=== PATIENT | male | born 1980 | race African-American/Black ===

== ENCOUNTER 2019-01-16 10:33 | Inpatient (IN) | payer OTHER ==
[~2019-01-16] VITALS: Ht 177.8 cm; Wt 77.1 kg
[~2019-01-16 10:33] MED LIST: BUTA1CAP29 PO
--- NOTE | 2019-01-16 11:11 | PHYS DOC ---
Past Medical History Past Medical History: No Pertinent History Past Surgical History: No Surgical History Alcohol Use: Occasionally Drug Use: Marijuana Adult General Chief Complaint Chief Complaint: BACK PAIN - NO INJURY HPI HPI Patient is a 38-year-old -[place] male who presents to the emergency department for evaluation. He states that he bent over after placing a carton down on the floor yesterday and had acute pain in his back, radiating down to both legs. He states the pain was so bad he is unable to ambulate. He has not had any incontinence, numbness or focal weakness. He denies any saddle anesthesia, or incontinence, urinary or stool. He has not had any fevers or chills, and denies any direct traumatic injury. Any attempted movement, of his back, trunk, or lower extremities worsens back pain. There are no alleviating factors to his symptoms. Review of Systems Review of Systems Constitutional: Denies fever or chills [] Eyes: Denies change in visual acuity, redness, or eye pain [] HENT: Denies nasal congestion or sore throat [] Respiratory: Denies cough or shortness of breath [] Cardiovascular: The patient denies any shortness of breath, chest pain, palpitations, or orthopnea[] GI: Denies abdominal pain, nausea, vomiting, bloody stools or diarrhea [] : Denies dysuria or hematuria [] Musculoskeletal: Denies nebk pain or joint pain [] Integument: Denies rash or skin lesions [] Neurologic: Denies headache, focal weakness or sensory changes [] Endocrine: Denies polyuria or polydipsia [] All other systems were reviewed and found to be within normal limits, except as documented in this note. Current Medications Current Medications Current Medications Medications (Trade) Dose Ordered Sig/Cherelle Start Time Stop Time Status Last Admin Dose Admin Diazepam (Valium) 5 mg 1X ONCE 01/16/19 11:15 01/16/19 11:16 DC 01/16/19 11:28 5 MG Hydromorphone HCl (Dilaudid) 1 mg 1X ONCE 01/16/19 11:15 01/16/19 11:16 DC Ketorolac Tromethamine (Toradol 30mg Vial) 30 mg 1X ONCE 01/16/19 11:15 01/16/19 11:16 DC 01/16/19 11:28 30 MG Allergies Allergies Allergies Coded Allergies Type Severity Reaction Last Updated Verified No Known Drug Allergies 11/19/16 No Physical Exam Physical Exam PHYSICAL EXAM: CONSTITUTIONAL: Well developed, well nourished HEAD: normocephalic, atraumatic EENT: PERRL, EOMI. Conjunctivae normal color, sclerae non-icteric; moist mucous membranes. NECK: Supple, non-tender; no meningismus. LUNGS: Lungs CTA, breathing even and unlabored. Normal air movement. HEART: Regular rate and rhythm, no murmur CHEST: No deformity; non-tender ABDOMEN: The abdomen is soft, mild diffuse tenderness to palpation of the abdomen which the patient states exacerbates his back pain, normal bowel sounds are present, there is no rebound or guarding, no masses or bruits. EXTREM: Normal ROM; no deformity, no calf tenderness. Normal pulses palpable in all extremities. There is no pedal edema. SKIN: No rash; no diaphoresis NEURO: Alert; normal speech and cognition; CN's grossly intact; strength grossly intact without focal deficit. Telemetry reflexes are intact bilaterally. There is no fracture. There is no distal or perineal anesthesia. There is diffuse tenderness to palpation to the mid to lower lumbar spine, both midline and paraspinal. BACK: No CVA TTP. Current Patient Data Vital Signs Vital Signs Date Time Temp Pulse Resp B/P (MAP) Pulse Ox O2 Delivery O2 Flow Rate FiO2 01/16/19 10:33 97.8 61 18 142/62 (88) 100 Room Air 97.8 Lab Values Laboratory Tests Test 01/16/19 11:32 White Blood Count 4.6 x10^3/uL (4.0-11.0) Red Blood Count 5.20 x10^6/uL (4.30-5.70) Hemoglobin 14.9 g/dL (13.0-17.5) Hematocrit 46.2 % (39.0-53.0) Mean Corpuscular Volume 89 fL (79-100) Mean Corpuscular Hemoglobin 29 pg (25-35) Mean Corpuscular Hemoglobin Concent 32 g/dL (31-37) Red Cell Distribution Width 12.9 % (11.5-14.5) Platelet Count 210 x10^3/uL (140-400) Neutrophils (%) (Auto) 48 % (31-73) Lymphocytes (%) (Auto) 35 % (24-48) Monocytes (%) (Auto) 12 % (0-9) H Eosinophils (%) (Auto) 4 % (0-3) H Basophils (%) (Auto) 1 % (0-3) Neutrophils # (Auto) 2.2 x10^3uL (1.8-7.7) Lymphocytes # (Auto) 1.6 x10^3/uL (1.0-4.8) Monocytes # (Auto) 0.6 x10^3/uL (0.0-1.1) Eosinophils # (Auto) 0.2 x10^3/uL (0.0-0.7) Basophils # (Auto) 0.1 x10^3/uL (0.0-0.2) Sodium Level 144 mmol/L (136-145) Potassium Level 3.7 mmol/L (3.5-5.1) Chloride Level 106 mmol/L (98-107) Carbon Dioxide Level 30 mmol/L (21-32) Anion Gap 8 (6-14) Blood Urea Nitrogen 10 mg/dL (8-26) Creatinine 1.3 mg/dL (0.7-1.3) Estimated GFR (Cockcroft-Gault) 75.6 BUN/Creatinine Ratio 8 (6-20) Glucose Level 96 mg/dL (70-99) Calcium Level 8.9 mg/dL (8.5-10.1) Total Bilirubin 0.3 mg/dL (0.2-1.0) Aspartate Amino Transferase (AST) 20 U/L (15-37) Alanine Aminotransferase (ALT) 14 U/L (16-63) L Alkaline Phosphatase 75 U/L (46-116) C-Reactive Protein, Quantitative < 0.5 mg/L (0-3.3) Total Protein 7.2 g/dL (6.4-8.2) Albumin 3.8 g/dL (3.4-5.0) Albumin/Globulin Ratio 1.1 (1.0-1.7) Laboratory Tests 01/16/19 11:32 Laboratory Tests 01/16/19 11:32 EKG EKG [] Radiology/Procedures Radiology/Procedures [] Course & Med Decision Making Course & Med Decision Making Pertinent Labs and Imaging studies reviewed. (See chart for details) [The patient's condition remains stable. However, he is unable to ambulate at all secondary to the pain. He denied that I wanted. He does not like opiates. I discussed the case with the hospitalist who will will admit the patient for further evaluation and treatment, likely MRI, and possible neurosurgical consult..] Dragon Disclaimer Dragon Disclaimer This electronic medical record was generated, in whole or in part, using a voice recognition dictation system. Departure Departure Impression: Primary Impression: Acute low back pain Disposition: ADMITTED INPATIENT Admitting Physician: Opal Conner Condition: STABLE Referrals: NO PCP (PCP) RAN GONZALES MD Jan 16, 2019 11:11
[2019-01-16] MEDS ORDERED: HYDROmorphone 2 MG/ML VIAL IV ONE (11:15)
[2019-01-16] MEDS ORDERED: KETOROLAC 30 MG/ML VIAL. IV ONE (11:15)
[2019-01-16] MEDS ORDERED: diazePAM 5 MG TABLET PO ONE (11:15)
[2019-01-16 11:59] LABS: BASO # 0.1 x10^3/uL (0.0-0.2); BASO % 1 % (0-3); EOS # 0.2 x10^3/uL (0.0-0.7); EOS % 4 % (0-3); HEMATOCRIT 46.2 % (39.0-53.0); HEMOGLOBIN 14.9 g/dL (13.0-17.5); LYMPH # 1.6 x10^3/uL (1.0-4.8); LYMPH % 35 % (24-48); MEAN CORPUSCULAR HEMOGLOBIN 29 pg (25-35); MEAN CORPUSCULAR HGB CONC 32 g/dL (31-37); MEAN CORPUSCULAR VOLUME 89 fL (79-100); MONO # 0.6 x10^3/uL (0.0-1.1); MONO % 12 % (0-9); NEUT # 2.2 x10^3uL (1.8-7.7); NEUT % 48 % (31-73); PLATELET COUNT 210 x10^3/uL (140-400); RED CELL DISTRIBUTION WIDTH 12.9 % (11.5-14.5); WHITE BLOOD COUNT 4.6 x10^3/uL (4.0-11.0)
[2019-01-16 12:10] LABS: ANION GAP 8 (6-14); BLOOD UREA NITROGEN 10 mg/dL (8-26); BUN/CREATININE RATIO 8 (6-20); CALCIUM 8.9 mg/dL (8.5-10.1); CARBON DIOXIDE 30 mmol/L (21-32); CHLORIDE 106 mmol/L (98-107); CREATININE 1.3 mg/dL (0.7-1.3); GFR 75.6; GLUCOSE 96 mg/dL (70-99); POTASSIUM 3.7 mmol/L (3.5-5.1); SODIUM 144 mmol/L (136-145)
[2019-01-16 12:15] LABS: ALBUMIN 3.8 g/dL (3.4-5.0); ALBUMIN/GLOBULIN RATIO 1.1 (1.0-1.7); ALK PHOS 75 U/L (46-116); ALT (SGPT) 14 U/L (16-63); AST (SGOT) 20 U/L (15-37); C-REACTIVE PROTEIN < 0.5 mg/L (0-3.3); TOTAL BILIRUBIN 0.3 mg/dL (0.2-1.0); TOTAL PROTEIN 7.2 g/dL (6.4-8.2)
--- NOTE | 2019-01-16 12:29 | RAD ---
Examination: LUMBAR SPINE 2-3V History: LBP X1 DAY AFTER LIFTING OBJECT. UNABLE TO BEAR WEIGHT Comparison/Correlation: None Findings: Frontal, lateral, and cone-down L5-S1 lateral views of the lumbar spine were obtained. Alignment is normal. Mild sclerosis of the right sacroiliac joint is questioned. Body heights and disc spaces are adequate. No fracture or bony destruction. Gaseous distention of large and small bowel is present but mild. Impression: No acute bony process. Alignment is normal. No significant degenerative change of the lumbar spine. Electronically signed by: Mitch Landeros MD (01/16/2019 12:26 PM) [facility]
[2019-01-16] MEDS ORDERED: KETOROLAC 30 MG/ML VIAL. IV PRN (12:30)
[2019-01-16] MEDS ORDERED: fentaNYL PF VIAL 100 MCG/2 ML VIAL IV PRN (12:30)
[2019-01-16] MEDS ORDERED: ZOLPIDEM 5 MG TABLET. PO PRN (12:30)
[2019-01-16] MEDS ORDERED: HYDROcodone/APAP 5/325MG 1 TAB TABLET PO PRN (12:30)
[2019-01-16 12:42] LABS: BILIRUBIN,URINE NEGATIVE (NEG); CLARITY,URINE CLEAR; COLOR,URINE YELLOW; NITRITE,URINE NEGATIVE (NEG); PROTEIN,URINE NEGATIVE (NEG-TRACE); UROBILINOGEN,URINE 0.2 mg/dL (0.2 mg/dL)
[2019-01-16] MEDS ORDERED: BUTALB/APAP/CAFEIN 50/325/40MG TABLET. PO PRN (12:45)
[2019-01-16 12:57] LABS: HYALINE CASTS, URINE FEW /HPF; SQUAMOUS EPITHELIAL CELL,UR FEW /LPF
[2019-01-16 12:58] LABS: BACTERIA,URINE 0 /HPF (0-FEW); RBC,URINE 0 /HPF (0-2); WBC,URINE OCC /HPF (0-4)
--- NOTE | 2019-01-16 13:10 | NUR ---
This patient arrived to the unit via gurney, was able to assist to bed with complaints of pain. Pain stated, "I do not want pain medications, unless I have to have them." Education completed on pain medications, including handout in welcome packet. Call light within reach of patient, family at bedside, this nurse will continue to monitor.
[2019-01-16] MEDS: LIDOCAINE (700MG/PATCH) PATCH. TD SCH (14:34)
[2019-01-16 15:39] VITALS: BP 125/71
--- NOTE | 2019-01-16 17:53 | PDOC1 ---
History and Physical Date of Admission Date of Admission DATE: 01/16/19 TIME: 17:48 Identification/Chief Complaint Chief Complaint acute back pain Source Source: Caregiver, Chart review, Patient History of Present Illness History of Present Illness 38 AA male, hx back pain, work related, disc bulge 2002, dx via MRI< Was well since tried to lift an empty egg cart, maybe bent in a wrong fashion, Then sever pain while walking and even at rest, HE describes some shooting pain bilateral hips to mid knees, and numbness, NO loos of bowel/bladder fcn. Still pain despite my IV and PO pain med and lidoderm patch, Xray LS spine UR. Will get physiatry and mRI, check for disc bulge/pathology, MRI likely might be revealing HE has no other signif past medical nor vizcaino she take meds at home Past Medical History Cardiovascular: No pertinent hx Pulmonary: No pertinent hx GI: No pertinent hx Heme/Onc: No pertinent hx Hepatobiliary: No pertinent hx Psych: No pertinent hx Musculoskeletal: low back pain Infectious disease: No pertinent hx ENT: No pertinent hx Renal/: No pertinent hx Endocrine: No pertinent hx Dermatology: No pertinent hx Past Surgical History Past Surgical History: No pertinent history Family History Family History: No Significant Social History Smoke: No ALCOHOL: none Drugs: None Current Problem List Problem List Problems Medical Problems: (1) Acute low back pain Status: Acute Current Medications Current Medications Current Medications Hydromorphone HCl (Dilaudid) 1 mg 1X ONCE IV ; Start 01/16/19 at 11:15; Stop at 11:16; Status DC Diazepam (Valium) 5 mg 1X ONCE PO Last administered on 01/16/19at 11:28; Start 01/16/19 at 11:15; Stop 01/16/19 at 11:16; Status DC Ketorolac Tromethamine (Toradol 30mg Vial) 30 mg 1X ONCE IV Last administered on 01/16/19at 11:28; Start 01/16/19 at 11:15; Stop 01/16/19 at 11:16; Status DC Lidocaine (Lidoderm) 1 patch DAILY TD Last administered on 01/16/19at 14:34; Start 01/16/19 at 12:30 Ketorolac Tromethamine (Toradol 30mg Vial) 15 mg PRN Q6HRS PRN IV PAIN; Start 01/16/19 at 12:30; Stop 01/21/19 at 12:29 Acetaminophen/ Hydrocodone Bitart (Lortab 5/325) 1 tab PRN Q4HRS PRN PO MODERATE PAIN Last administered on 01/16/19at 16:37; Start 01/16/19 at 12:30 Zolpidem Tartrate (Ambien) 5 mg PRN QHS PRN PO INSOMNIA; Start 01/16/19 at 12: 30 Acetaminophen/ Butalbital/ Caffeine (Fioricet) 1 tab PRN Q6HRS PRN PO MIGRAINE HEADACHE; Start 01/16/19 at 12:45 Fentanyl Citrate (Fentanyl 2ml Vial) 50 mcg PRN Q2HR PRN IV SEVERE PAIN; Start 01/16/19 at 12:30 Active Scripts Active Fioricet 50-300-40 Mg Capsule (Butalb/Acetaminophen/Caffeine) 1 Each Capsule 1 Each PO PRN Q4HRS PRN Allergies Allergies: Uncoded Allergies: sea food (Allergy, Severe, Swelling, 01/16/19) ROS Review of System as per HPI,all else is neg Physical Exam General: Alert, Oriented X3, Cooperative, No acute distress HEENT: Atraumatic, PERRLA Lungs: Clear to auscultation, Normal air movement Heart: S1S2, no gallops, no murmurs Cardiovascular: S1, S2 Breasts: Normal, Rt breast nml w/o mass, Lt breast nml w/o mass, Nipples normal Abdomen: Normal bowel sounds, Soft, No tenderness, No hepatosplenomegaly, No masses Male Genitals Exam: normal genitalia, normal prostate PELVIC: Nml ext genitalia Extremities: No clubbing, No cyanosis, No edema, Normal pulses, No tenderness/ swelling Skin: No rashes, No breakdown, No significant lesion Neuro: Normal gait, Normal speech, Strength at 5/5 X4 ext, Normal tone, Sensation intact, Cranial nerves 3-12 NL, Reflexes 2+ Psych/Mental Status: Mental status NL, Mood NL Vitals Vitals Vital Signs Date Time Temp Pulse Resp B/P (MAP) Pulse Ox O2 Delivery O2 Flow Rate FiO2 01/16/19 16:37 100 Room Air 01/16/19 15:39 99.1 54 18 125/71 (89) 99.1 Labs Labs Laboratory Tests Test 01/16/19 11:32 01/16/19 12:30 White Blood Count 4.6 x10^3/uL (4.0-11.0) Red Blood Count 5.20 x10^6/uL (4.30-5.70) Hemoglobin 14.9 g/dL (13.0-17.5) Hematocrit 46.2 % (39.0-53.0) Mean Corpuscular Volume 89 fL (79-100) Mean Corpuscular Hemoglobin 29 pg (25-35) Mean Corpuscular Hemoglobin Concent 32 g/dL (31-37) Red Cell Distribution Width 12.9 % (11.5-14.5) Platelet Count 210 x10^3/uL (140-400) Neutrophils (%) (Auto) 48 % (31-73) Lymphocytes (%) (Auto) 35 % (24-48) Monocytes (%) (Auto) 12 % (0-9) Eosinophils (%) (Auto) 4 % (0-3) Basophils (%) (Auto) 1 % (0-3) Neutrophils # (Auto) 2.2 x10^3uL (1.8-7.7) Lymphocytes # (Auto) 1.6 x10^3/uL (1.0-4.8) Monocytes # (Auto) 0.6 x10^3/uL (0.0-1.1) Eosinophils # (Auto) 0.2 x10^3/uL (0.0-0.7) Basophils # (Auto) 0.1 x10^3/uL (0.0-0.2) Erythrocyte Sedimentation Rate 2 (0-15) Sodium Level 144 mmol/L (136-145) Potassium Level 3.7 mmol/L (3.5-5.1) Chloride Level 106 mmol/L (98-107) Carbon Dioxide Level 30 mmol/L (21-32) Anion Gap 8 (6-14) Blood Urea Nitrogen 10 mg/dL (8-26) Creatinine 1.3 mg/dL (0.7-1.3) Estimated GFR (Cockcroft-Gault) 75.6 BUN/Creatinine Ratio 8 (6-20) Glucose Level 96 mg/dL (70-99) Calcium Level 8.9 mg/dL (8.5-10.1) Total Bilirubin 0.3 mg/dL (0.2-1.0) Aspartate Amino Transf (AST/SGOT) 20 U/L (15-37) Alanine Aminotransferase (ALT/SGPT) 14 U/L (16-63) Alkaline Phosphatase 75 U/L (46-116) C-Reactive Protein, Quantitative < 0.5 mg/L (0-3.3) Total Protein 7.2 g/dL (6.4-8.2) Albumin 3.8 g/dL (3.4-5.0) Albumin/Globulin Ratio 1.1 (1.0-1.7) Urine Collection Type Unknown Urine Color Yellow Urine Clarity Clear Urine pH 6.0 Urine Specific [place] 1.015 Urine Protein Negative mg/dL (NEG-TRACE) Urine Glucose (UA) Negative mg/dL (NEG) Urine Ketones (Stick) Negative mg/dL (NEG) Urine Blood Negative (NEG) Urine Nitrite Negative (NEG) Urine Bilirubin Negative (NEG) Urine Urobilinogen Dipstick 0.2 mg/dL (0.2 mg/dL) Urine Leukocyte Esterase Negative (NEG) Urine RBC 0 /HPF (0-2) Urine WBC Occ /HPF (0-4) Urine Squamous Epithelial Cells Few /LPF Urine Bacteria 0 /HPF (0-FEW) Urine Hyaline Casts Few /HPF Urine Mucus Mod /LPF Laboratory Tests Test 01/16/19 11:32 01/16/19 12:30 White Blood Count 4.6 x10^3/uL (4.0-11.0) Red Blood Count 5.20 x10^6/uL (4.30-5.70) Hemoglobin 14.9 g/dL (13.0-17.5) Hematocrit 46.2 % (39.0-53.0) Mean Corpuscular Volume 89 fL (79-100) Mean Corpuscular Hemoglobin 29 pg (25-35) Mean Corpuscular Hemoglobin Concent 32 g/dL (31-37) Red Cell Distribution Width 12.9 % (11.5-14.5) Platelet Count 210 x10^3/uL (140-400) Neutrophils (%) (Auto) 48 % (31-73) Lymphocytes (%) (Auto) 35 % (24-48) Monocytes (%) (Auto) 12 % (0-9) Eosinophils (%) (Auto) 4 % (0-3) Basophils (%) (Auto) 1 % (0-3) Neutrophils # (Auto) 2.2 x10^3uL (1.8-7.7) Lymphocytes # (Auto) 1.6 x10^3/uL (1.0-4.8) Monocytes # (Auto) 0.6 x10^3/uL (0.0-1.1) Eosinophils # (Auto) 0.2 x10^3/uL (0.0-0.7) Basophils # (Auto) 0.1 x10^3/uL (0.0-0.2) Erythrocyte Sedimentation Rate 2 (0-15) Sodium Level 144 mmol/L (136-145) Potassium Level 3.7 mmol/L (3.5-5.1) Chloride Level 106 mmol/L (98-107) Carbon Dioxide Level 30 mmol/L (21-32) Anion Gap 8 (6-14) Blood Urea Nitrogen 10 mg/dL (8-26) Creatinine 1.3 mg/dL (0.7-1.3) Estimated GFR (Cockcroft-Gault) 75.6 BUN/Creatinine Ratio 8 (6-20) Glucose Level 96 mg/dL (70-99) Calcium Level 8.9 mg/dL (8.5-10.1) Total Bilirubin 0.3 mg/dL (0.2-1.0) Aspartate Amino Transf (AST/SGOT) 20 U/L (15-37) Alanine Aminotransferase (ALT/SGPT) 14 U/L (16-63) Alkaline Phosphatase 75 U/L (46-116) C-Reactive Protein, Quantitative < 0.5 mg/L (0-3.3) Total Protein 7.2 g/dL (6.4-8.2) Albumin 3.8 g/dL (3.4-5.0) Albumin/Globulin Ratio 1.1 (1.0-1.7) Urine Collection Type Unknown Urine Color Yellow Urine Clarity Clear Urine pH 6.0 Urine Specific [place] 1.015 Urine Protein Negative mg/dL (NEG-TRACE) Urine Glucose (UA) Negative mg/dL (NEG) Urine Ketones (Stick) Negative mg/dL (NEG) Urine Blood Negative (NEG) Urine Nitrite Negative (NEG) Urine Bilirubin Negative (NEG) Urine Urobilinogen Dipstick 0.2 mg/dL (0.2 mg/dL) Urine Leukocyte Esterase Negative (NEG) Urine RBC 0 /HPF (0-2) Urine WBC Occ /HPF (0-4) Urine Squamous Epithelial Cells Few /LPF Urine Bacteria 0 /HPF (0-FEW) Urine Hyaline Casts Few /HPF Urine Mucus Mod /LPF VTE Prophylaxis Ordered VTE Prophylaxis Devices: Yes VTE Pharmacological Prophylaxi: Yes Assessment/Plan Assessment/Plan 1. Acute back pain 01/15 after an awkward position bending 2, Hx disc issues/bulge 2002, work related PLAN: MRI tmr Physiatry tmr PAin control Monitor for loss of bowel/blader fcn - so far none NO home meds to reconcile LIZZIE RYAN MD Jan 16, 2019 17:53
[2019-01-16 19:00] VITALS: BP 136/71
[2019-01-16 22:39] VITALS: BP 120/57
[2019-01-17] MEDS ORDERED: ONDANSETRON PF 4 MG/2 ML VIAL. IV PRN
[2019-01-17 03:00] VITALS: BP 111/55
[2019-01-17 07:00] VITALS: BP 110/73
[2019-01-17] MEDS: LIDOCAINE (700MG/PATCH) PATCH. TD SCH (08:38)
--- NOTE | 2019-01-17 08:53 | PDOC ---
PROGRESS NOTES Chief Complaint Chief Complaint 1. Acute back pain 01/15 after an awkward position bending 2, Hx disc issues/bulge 2002, work related History of Present Illness History of Present Illness 38 AA male, hx back pain, work related, disc bulge 2002, dx via MRI at that time. Improved with PT, rehab at that time. Was well since 01/15 tried to lift an empty egg cart, then severe pain while walking and even at rest with associate shooting pain bilateral posterior thighs to mid knees, and numbness with weakness, unable to stand without full assist and has been falling. NoO loos of bowel/bladder function. Still10/10 pain despite IV and PO pain meds, actually vomited with opioids. Lidoderm patch , Xray LS spine UR. Lumbar XR - No acute bony process. Alignment is normal. No significant degenerative change of the lumbar spine. This morning no changes. Does not want opioids for his pain. He has some associated weakness, numbness and nausea. PLAN: MRI Pain control Monitor for loss of bowel/blader fcn - so far none Will get physiatry and mRI, check for disc bulge/pathology, MRI likely might be revealing Vitals Vitals Vital Signs Date Time Temp Pulse Resp B/P (MAP) Pulse Ox O2 Delivery O2 Flow Rate FiO2 01/17/19 07:00 97.8 56 18 110/73 (85) 99 Room Air 97.8 Physical Exam General: Alert, Oriented X3, Cooperative, No acute distress Abdomen: Normal bowel sounds, Soft, No tenderness, No hepatosplenomegaly, No masses Extremities: No clubbing, No cyanosis, No edema, Normal pulses, No tenderness/ swelling Skin: No rashes, No breakdown, No significant lesion Labs LABS Laboratory Tests Test 01/16/19 11:32 01/16/19 12:30 White Blood Count 4.6 x10^3/uL (4.0-11.0) Red Blood Count 5.20 x10^6/uL (4.30-5.70) Hemoglobin 14.9 g/dL (13.0-17.5) Hematocrit 46.2 % (39.0-53.0) Mean Corpuscular Volume 89 fL (79-100) Mean Corpuscular Hemoglobin 29 pg (25-35) Mean Corpuscular Hemoglobin Concent 32 g/dL (31-37) Red Cell Distribution Width 12.9 % (11.5-14.5) Platelet Count 210 x10^3/uL (140-400) Neutrophils (%) (Auto) 48 % (31-73) Lymphocytes (%) (Auto) 35 % (24-48) Monocytes (%) (Auto) 12 % (0-9) Eosinophils (%) (Auto) 4 % (0-3) Basophils (%) (Auto) 1 % (0-3) Neutrophils # (Auto) 2.2 x10^3uL (1.8-7.7) Lymphocytes # (Auto) 1.6 x10^3/uL (1.0-4.8) Monocytes # (Auto) 0.6 x10^3/uL (0.0-1.1) Eosinophils # (Auto) 0.2 x10^3/uL (0.0-0.7) Basophils # (Auto) 0.1 x10^3/uL (0.0-0.2) Erythrocyte Sedimentation Rate 2 (0-15) Sodium Level 144 mmol/L (136-145) Potassium Level 3.7 mmol/L (3.5-5.1) Chloride Level 106 mmol/L (98-107) Carbon Dioxide Level 30 mmol/L (21-32) Anion Gap 8 (6-14) Blood Urea Nitrogen 10 mg/dL (8-26) Creatinine 1.3 mg/dL (0.7-1.3) Estimated GFR (Cockcroft-Gault) 75.6 BUN/Creatinine Ratio 8 (6-20) Glucose Level 96 mg/dL (70-99) Calcium Level 8.9 mg/dL (8.5-10.1) Total Bilirubin 0.3 mg/dL (0.2-1.0) Aspartate Amino Transf (AST/SGOT) 20 U/L (15-37) Alanine Aminotransferase (ALT/SGPT) 14 U/L (16-63) Alkaline Phosphatase 75 U/L (46-116) C-Reactive Protein, Quantitative < 0.5 mg/L (0-3.3) Total Protein 7.2 g/dL (6.4-8.2) Albumin 3.8 g/dL (3.4-5.0) Albumin/Globulin Ratio 1.1 (1.0-1.7) Urine Collection Type Unknown Urine Color Yellow Urine Clarity Clear Urine pH 6.0 Urine Specific [place] 1.015 Urine Protein Negative mg/dL (NEG-TRACE) Urine Glucose (UA) Negative mg/dL (NEG) Urine Ketones (Stick) Negative mg/dL (NEG) Urine Blood Negative (NEG) Urine Nitrite Negative (NEG) Urine Bilirubin Negative (NEG) Urine Urobilinogen Dipstick 0.2 mg/dL (0.2 mg/dL) Urine Leukocyte Esterase Negative (NEG) Urine RBC 0 /HPF (0-2) Urine WBC Occ /HPF (0-4) Urine Squamous Epithelial Cells Few /LPF Urine Bacteria 0 /HPF (0-FEW) Urine Hyaline Casts Few /HPF Urine Mucus Mod /LPF Assessment and Plan Assessmemt and Plan Problems Medical Problems: (1) Acute low back pain Status: Acute Comment Review of Relevant I have reviewed the following items jose (where applicable) has been applied. Labs Laboratory Tests Test 01/16/19 11:32 01/16/19 12:30 White Blood Count 4.6 x10^3/uL (4.0-11.0) Red Blood Count 5.20 x10^6/uL (4.30-5.70) Hemoglobin 14.9 g/dL (13.0-17.5) Hematocrit 46.2 % (39.0-53.0) Mean Corpuscular Volume 89 fL (79-100) Mean Corpuscular Hemoglobin 29 pg (25-35) Mean Corpuscular Hemoglobin Concent 32 g/dL (31-37) Red Cell Distribution Width 12.9 % (11.5-14.5) Platelet Count 210 x10^3/uL (140-400) Neutrophils (%) (Auto) 48 % (31-73) Lymphocytes (%) (Auto) 35 % (24-48) Monocytes (%) (Auto) 12 % (0-9) Eosinophils (%) (Auto) 4 % (0-3) Basophils (%) (Auto) 1 % (0-3) Neutrophils # (Auto) 2.2 x10^3uL (1.8-7.7) Lymphocytes # (Auto) 1.6 x10^3/uL (1.0-4.8) Monocytes # (Auto) 0.6 x10^3/uL (0.0-1.1) Eosinophils # (Auto) 0.2 x10^3/uL (0.0-0.7) Basophils # (Auto) 0.1 x10^3/uL (0.0-0.2) Erythrocyte Sedimentation Rate 2 (0-15) Sodium Level 144 mmol/L (136-145) Potassium Level 3.7 mmol/L (3.5-5.1) Chloride Level 106 mmol/L (98-107) Carbon Dioxide Level 30 mmol/L (21-32) Anion Gap 8 (6-14) Blood Urea Nitrogen 10 mg/dL (8-26) Creatinine 1.3 mg/dL (0.7-1.3) Estimated GFR (Cockcroft-Gault) 75.6 BUN/Creatinine Ratio 8 (6-20) Glucose Level 96 mg/dL (70-99) Calcium Level 8.9 mg/dL (8.5-10.1) Total Bilirubin 0.3 mg/dL (0.2-1.0) Aspartate Amino Transf (AST/SGOT) 20 U/L (15-37) Alanine Aminotransferase (ALT/SGPT) 14 U/L (16-63) Alkaline Phosphatase 75 U/L (46-116) C-Reactive Protein, Quantitative < 0.5 mg/L (0-3.3) Total Protein 7.2 g/dL (6.4-8.2) Albumin 3.8 g/dL (3.4-5.0) Albumin/Globulin Ratio 1.1 (1.0-1.7) Urine Collection Type Unknown Urine Color Yellow Urine Clarity Clear Urine pH 6.0 Urine Specific [place] 1.015 Urine Protein Negative mg/dL (NEG-TRACE) Urine Glucose (UA) Negative mg/dL (NEG) Urine Ketones (Stick) Negative mg/dL (NEG) Urine Blood Negative (NEG) Urine Nitrite Negative (NEG) Urine Bilirubin Negative (NEG) Urine Urobilinogen Dipstick 0.2 mg/dL (0.2 mg/dL) Urine Leukocyte Esterase Negative (NEG) Urine RBC 0 /HPF (0-2) Urine WBC Occ /HPF (0-4) Urine Squamous Epithelial Cells Few /LPF Urine Bacteria 0 /HPF (0-FEW) Urine Hyaline Casts Few /HPF Urine Mucus Mod /LPF Laboratory Tests Test 01/16/19 11:32 01/16/19 12:30 White Blood Count 4.6 x10^3/uL (4.0-11.0) Red Blood Count 5.20 x10^6/uL (4.30-5.70) Hemoglobin 14.9 g/dL (13.0-17.5) Hematocrit 46.2 % (39.0-53.0) Mean Corpuscular Volume 89 fL (79-100) Mean Corpuscular Hemoglobin 29 pg (25-35) Mean Corpuscular Hemoglobin Concent 32 g/dL (31-37) Red Cell Distribution Width 12.9 % (11.5-14.5) Platelet Count 210 x10^3/uL (140-400) Neutrophils (%) (Auto) 48 % (31-73) Lymphocytes (%) (Auto) 35 % (24-48) Monocytes (%) (Auto) 12 % (0-9) Eosinophils (%) (Auto) 4 % (0-3) Basophils (%) (Auto) 1 % (0-3) Neutrophils # (Auto) 2.2 x10^3uL (1.8-7.7) Lymphocytes # (Auto) 1.6 x10^3/uL (1.0-4.8) Monocytes # (Auto) 0.6 x10^3/uL (0.0-1.1) Eosinophils # (Auto) 0.2 x10^3/uL (0.0-0.7) Basophils # (Auto) 0.1 x10^3/uL (0.0-0.2) Erythrocyte Sedimentation Rate 2 (0-15) Sodium Level 144 mmol/L (136-145) Potassium Level 3.7 mmol/L (3.5-5.1) Chloride Level 106 mmol/L (98-107) Carbon Dioxide Level 30 mmol/L (21-32) Anion Gap 8 (6-14) Blood Urea Nitrogen 10 mg/dL (8-26) Creatinine 1.3 mg/dL (0.7-1.3) Estimated GFR (Cockcroft-Gault) 75.6 BUN/Creatinine Ratio 8 (6-20) Glucose Level 96 mg/dL (70-99) Calcium Level 8.9 mg/dL (8.5-10.1) Total Bilirubin 0.3 mg/dL (0.2-1.0) Aspartate Amino Transf (AST/SGOT) 20 U/L (15-37) Alanine Aminotransferase (ALT/SGPT) 14 U/L (16-63) Alkaline Phosphatase 75 U/L (46-116) C-Reactive Protein, Quantitative < 0.5 mg/L (0-3.3) Total Protein 7.2 g/dL (6.4-8.2) Albumin 3.8 g/dL (3.4-5.0) Albumin/Globulin Ratio 1.1 (1.0-1.7) Urine Collection Type Unknown Urine Color Yellow Urine Clarity Clear Urine pH 6.0 Urine Specific [place] 1.015 Urine Protein Negative mg/dL (NEG-TRACE) Urine Glucose (UA) Negative mg/dL (NEG) Urine Ketones (Stick) Negative mg/dL (NEG) Urine Blood Negative (NEG) Urine Nitrite Negative (NEG) Urine Bilirubin Negative (NEG) Urine Urobilinogen Dipstick 0.2 mg/dL (0.2 mg/dL) Urine Leukocyte Esterase Negative (NEG) Urine RBC 0 /HPF (0-2) Urine WBC Occ /HPF (0-4) Urine Squamous Epithelial Cells Few /LPF Urine Bacteria 0 /HPF (0-FEW) Urine Hyaline Casts Few /HPF Urine Mucus Mod /LPF Medications Current Medications Hydromorphone HCl (Dilaudid) 1 mg 1X ONCE IV ; Start 01/16/19 at 11:15; Stop at 11:16; Status DC Diazepam (Valium) 5 mg 1X ONCE PO Last administered on 01/16/19at 11:28; Start 01/16/19 at 11:15; Stop 01/16/19 at 11:16; Status DC Ketorolac Tromethamine (Toradol 30mg Vial) 30 mg 1X ONCE IV Last administered on 01/16/19at 11:28; Start 01/16/19 at 11:15; Stop 01/16/19 at 11:16; Status DC Lidocaine (Lidoderm) 1 patch DAILY TD Last administered on 01/17/19at 08:38; Start 01/16/19 at 12:30 Ketorolac Tromethamine (Toradol 30mg Vial) 15 mg PRN Q6HRS PRN IV PAIN Last administered on 01/16/19at 19:52; Start 01/16/19 at 12:30; Stop 01/21/19 at 12:29 Acetaminophen/ Hydrocodone Bitart (Lortab 5/325) 1 tab PRN Q4HRS PRN PO MODERATE PAIN Last administered on 01/16/19at 16:37; Start 01/16/19 at 12:30 Zolpidem Tartrate (Ambien) 5 mg PRN QHS PRN PO INSOMNIA; Start 01/16/19 at 12: 30 Acetaminophen/ Butalbital/ Caffeine (Fioricet) 1 tab PRN Q6HRS PRN PO MIGRAINE HEADACHE; Start 01/16/19 at 12:45 Fentanyl Citrate (Fentanyl 2ml Vial) 50 mcg PRN Q2HR PRN IV SEVERE PAIN Last administered on 01/16/19at 22:11; Start 01/16/19 at 12:30 Ondansetron HCl (Zofran) 4 mg PRN Q6HRS PRN IV NAUSEA/VOMITING 1ST CHOICE; Start 01/17/19 at 00:00 Active Scripts Active Fioricet 50-300-40 Mg Capsule (Butalb/Acetaminophen/Caffeine) 1 Each Capsule 1 Each PO PRN Q4HRS PRN Vitals/I & O Vital Sign - Last 24 Hours 01/16/19 01/16/19 01/16/19 01/16/19 10:33 11:00 12:00 12:30 Temp 97.8 97.8 Pulse 61 54 48 46 Resp 18 B/P (MAP) 142/62 (88) 126/58 (80) 122/70 (87) 112/72 (85) Pulse Ox 100 99 100 100 O2 Delivery Room Air Room Air Room Air 01/16/19 01/16/19 01/16/19 01/16/19 15:31 15:39 16:37 18:00 Temp 99.1 99.1 Pulse 54 Resp 18 B/P (MAP) 125/71 (89) Pulse Ox 100 100 100 O2 Delivery Room Air Room Air Room Air Room Air 01/16/19 01/16/19 01/16/19 01/16/19 19:00 20:00 22:11 22:39 Temp 97.9 97.9 97.9 97.9 Pulse 55 69 Resp 16 20 18 B/P (MAP) 136/71 (92) 120/57 (78) Pulse Ox 100 100 98 O2 Delivery Room Air Room Air Room Air Room Air 01/16/19 01/17/19 01/17/19 22:41 03:00 07:00 Temp 98.1 97.8 98.1 97.8 Pulse 53 56 Resp 20 18 18 B/P (MAP) 111/55 (73) 110/73 (85) Pulse Ox 98 99 99 O2 Delivery Room Air Room Air Room Air Intake and Output 01/16/19 01/16/19 01/17/19 14:59 22:59 06:59 Intake Total 100 ml Balance 100 ml ELLY BANG MD Jan 17, 2019 08:53
[2019-01-17] MEDS ORDERED: CYCLOBENZAPRINE 10 MG TABLET. PO PRN (10:15)
[2019-01-17 11:00] VITALS: BP 118/69
--- NOTE | 2019-01-17 13:20 | NUR ---
Pt off unit via wheelchair with transportation for MRI.
--- NOTE | 2019-01-17 14:08 | RAD ---
EXAM: Lumbar spine MRI without contrast. HISTORY: Severe back pain. Leg weakness. TECHNIQUE: Multiplanar, multisequence magnetic resonance imaging of the lumbar spine was performed without contrast. COMPARISON: 01/16/2019 FINDINGS: There is straightening of lumbar lordosis. There is no significant listhesis. The vertebral bodies are normal in height. There is degenerative endplate remodeling and disc desiccation at L5-S1. The conus terminates at L1. At L1-L2, L2-L3, L3-L4 and L4-5, there is no stenosis. At L5-S1, there is a left paracentral to lateral recess disc protrusion and annular tear superimposed on a disc bulge and endplate remodeling. There is minimal left foraminal stenosis. There is effacement of the left lateral recess and deviation of the traversing left S1 nerve root. IMPRESSION: 1. L5-S1: Left paracentral to lateral recess disc protrusion and annular tear superimposed on a disc bulge and endplate remodeling, resulting in minimal left foraminal stenosis and effacement of the left lateral recess with abutment of the traversing left S1 nerve root. 2. No additional lumbar foraminal or central canal stenosis. Electronically signed by: Rajani Mir MD (01/17/2019 2:05 PM) [email or web address]
[2019-01-17 15:00] VITALS: BP 107/53
--- NOTE | 2019-01-17 16:14 | NUR ---
SW following for discharge planning. Discussed with RN, pt is listed as self pay, SW to give self pay resource packet tomorrow (01/18/19). SW will continue to follow.
[2019-01-17] MEDS ORDERED: CYCL10TA2 PO (17:39)
[2019-01-17] MEDS ORDERED: METH4TAB2 PO (17:39)
--- NOTE | 2019-01-17 19:22 | NUR ---
Pt discharged home with self care. Instructions and prescriptions discussed. Pt verbalized understanding. IV removed. Pt taken via wheelchair to main entrance and was secured in vehicle with family.
--- NOTE | 2019-01-17 22:38 | PDOC3 ---
Discharge Summary Visit Information Date of Admission: Jan 16, 2019 Date of Discharge: Jan 17, 2019 Admitting Diagnosis: Acute low back pain Final Diagnosis Problems Medical Problems: (1) Acute low back pain Status: Acute Brief Hospital Course Allergies Allergies Coded Allergies Type Severity Reaction Last Updated Verified Fish Containing Products Allergy Severe Swelling 01/16/19 Yes shellfish derived Allergy Severe Swelling 01/16/19 Yes Vital Signs Vital Signs Date Time Temp Pulse Resp B/P (MAP) Pulse Ox O2 Delivery O2 Flow Rate FiO2 01/17/19 15:00 98.3 62 18 107/53 (71) 99 Room Air 98.3 Lab Results Laboratory Tests Test 01/16/19 11:32 01/16/19 12:30 White Blood Count 4.6 x10^3/uL (4.0-11.0) Red Blood Count 5.20 x10^6/uL (4.30-5.70) Hemoglobin 14.9 g/dL (13.0-17.5) Hematocrit 46.2 % (39.0-53.0) Mean Corpuscular Volume 89 fL (79-100) Mean Corpuscular Hemoglobin 29 pg (25-35) Mean Corpuscular Hemoglobin Concent 32 g/dL (31-37) Red Cell Distribution Width 12.9 % (11.5-14.5) Platelet Count 210 x10^3/uL (140-400) Neutrophils (%) (Auto) 48 % (31-73) Lymphocytes (%) (Auto) 35 % (24-48) Monocytes (%) (Auto) 12 % (0-9) Eosinophils (%) (Auto) 4 % (0-3) Basophils (%) (Auto) 1 % (0-3) Neutrophils # (Auto) 2.2 x10^3uL (1.8-7.7) Lymphocytes # (Auto) 1.6 x10^3/uL (1.0-4.8) Monocytes # (Auto) 0.6 x10^3/uL (0.0-1.1) Eosinophils # (Auto) 0.2 x10^3/uL (0.0-0.7) Basophils # (Auto) 0.1 x10^3/uL (0.0-0.2) Erythrocyte Sedimentation Rate 2 (0-15) Sodium Level 144 mmol/L (136-145) Potassium Level 3.7 mmol/L (3.5-5.1) Chloride Level 106 mmol/L (98-107) Carbon Dioxide Level 30 mmol/L (21-32) Anion Gap 8 (6-14) Blood Urea Nitrogen 10 mg/dL (8-26) Creatinine 1.3 mg/dL (0.7-1.3) Estimated GFR (Cockcroft-Gault) 75.6 BUN/Creatinine Ratio 8 (6-20) Glucose Level 96 mg/dL (70-99) Calcium Level 8.9 mg/dL (8.5-10.1) Total Bilirubin 0.3 mg/dL (0.2-1.0) Aspartate Amino Transf (AST/SGOT) 20 U/L (15-37) Alanine Aminotransferase (ALT/SGPT) 14 U/L (16-63) Alkaline Phosphatase 75 U/L (46-116) C-Reactive Protein, Quantitative < 0.5 mg/L (0-3.3) Total Protein 7.2 g/dL (6.4-8.2) Albumin 3.8 g/dL (3.4-5.0) Albumin/Globulin Ratio 1.1 (1.0-1.7) Urine Collection Type Unknown Urine Color Yellow Urine Clarity Clear Urine pH 6.0 Urine Specific [place] 1.015 Urine Protein Negative mg/dL (NEG-TRACE) Urine Glucose (UA) Negative mg/dL (NEG) Urine Ketones (Stick) Negative mg/dL (NEG) Urine Blood Negative (NEG) Urine Nitrite Negative (NEG) Urine Bilirubin Negative (NEG) Urine Urobilinogen Dipstick 0.2 mg/dL (0.2 mg/dL) Urine Leukocyte Esterase Negative (NEG) Urine RBC 0 /HPF (0-2) Urine WBC Occ /HPF (0-4) Urine Squamous Epithelial Cells Few /LPF Urine Bacteria 0 /HPF (0-FEW) Urine Hyaline Casts Few /HPF Urine Mucus Mod /LPF Brief Hospital Course 38 AA male, hx back pain, work related, disc bulge 2002, dx via MRI at that time. Improved with PT, rehab at that time. Was well since 01/15 tried to lift an empty egg cart, then severe pain while walking and even at rest with associate shooting pain bilateral posterior thighs to mid knees, and numbness with weakness, unable to stand without full assist and has been falling. NoO loos of bowel/bladder function. Still10/10 pain despite IV and PO pain meds, actually vomited with opioids. Lidoderm patch , Xray LS spine UR. Lumbar XR - No acute bony process. Alignment is normal. No significant degenerative change of the lumbar spine. This morning no changes. Does not want opioids for his pain. He has some associated weakness, numbness and nausea. As he c/o bilateral numbness and weakness, he underwent MRI showing L5-S1 left lateral disc protrusion and was seen by PT for slipped disc and wished for discharge with medrol, flexeril and rehab modalities, 10 days lifting restrictions. 1. Acute back pain 01/15 after an awkward position bending 2, Hx disc issues/bulge 2002, work related Greater than 30 minutes spent on discharge. FINDINGS: There is straightening of lumbar lordosis. There is no significant listhesis. The vertebral bodies are normal in height. There is degenerative endplate remodeling and disc desiccation at L5-S1. The conus terminates at L1. At L1-L2, L2-L3, L3-L4 and L4-5, there is no stenosis. At L5-S1, there is a left paracentral to lateral recess disc protrusion and annular tear superimposed on a disc bulge and endplate remodeling. There is minimal left foraminal stenosis. There is effacement of the left lateral recess and deviation of the traversing left S1 nerve root. IMPRESSION: 1. L5-S1: Left paracentral to lateral recess disc protrusion and annular tear superimposed on a disc bulge and endplate remodeling, resulting in minimal left foraminal stenosis and effacement of the left lateral recess with abutment of the traversing left S1 nerve root. 2. No additional lumbar foraminal or central canal stenosis. Discharge Information Condition at Discharge: Improved Follow Up: Weeks (2) Disposition/Orders: D/C to Home Scheduled Methylprednisolone (Medrol) 4 Mg Tab.ds.pk, 1 PKG PO UD for Lumbago, #1 Prescribed by: ELLY BANG MD on 01/17/19 9846 Scheduled PRN Butalb/Acetaminophen/Caffeine (Fioricet 50-300-40 Mg Capsule) 1 Each Capsule, 1 EACH PO PRN Q4HRS PRN for MIGRAINE HEADACHE, #30 Prescribed by: JESUS KNOX D.O. on 11/19/167 Last Action: Converted on 01/16/19 1232 by LIZZIE RYAN Cyclobenzaprine Hcl (Cyclobenzaprine Hcl) 10 Mg Tablet, 10 MG PO PRN Q6HRS PRN for MUSCLE SPASMS for 10 Days, #40 Prescribed by: ELLY BANG MD on 01/17/19 1739 ELLY BANG MD Jan 17, 2019 22:38
== END 2019-01-17 19:00 | disposition home or self-care (01) | DRG 552 ==
LOC: ER 10:33 → 4 NORTH 12:20
PROVIDERS: ADMIT Internal Medicine; ATTEND Internal Medicine
DX: M51.27 Other intervertebral disc displacement, lumbosacral region (principal); F12.90 Cannabis use, unspecified, uncomplicated; Z91.013 Allergy to seafood
CPT/HCPCS: 36415; 72100; 72148; 80053; 81001; 85025; 85651; 86140; 96374; J1885; J3010; 97110; 97530; 99285-25

== ENCOUNTER 2020-08-21 13:27 | Emergency (ER) | payer MEDICAID, OTHER ==
[~2020-08-21] VITALS: Ht 177.8 cm; Wt 73.0 kg
[~2020-08-21 13:27] MED LIST changes: +CYCL10TA2 PO; +METH4TAB2 PO
[2020-08-21] MEDS ORDERED: HYDROcodone/APAP 5/325MG 1 TAB TABLET PO ONE (14:45)
--- NOTE | 2020-08-21 14:54 | PHYS DOC ---
Past Medical History Past Medical History: No Pertinent History Past Surgical History: No Surgical History Smoking Status: Former Smoker Alcohol Use: None Drug Use: Marijuana General Adult EDM: Chief Complaint: LOWER BACK PAIN OR INJURY HPI: HPI: Patient is a 40 year old male who presents with states he has chronic low back pain for an injury for bulging disc in his lumbar spine. He states about 2 days ago he was bent over picking up something and went to turn and felt pain in his right low back and now has sharp shooting pain down the back of his right leg. He states it is hard to ambulate. States pain is worse with ambulation and he is having to limp which makes the pain worse. He states he been taking ibuprofen at home and left over muscle relaxers from last year when this flared up. Rates his pain 10 out of 10. History of bulging disks in his lower back. Patient denies loss of bowel bladder, numbness or tingling, focal weakness. Review of Systems: Review of Systems: Constitutional: Denies fever or chills. [] Eyes: Denies change in visual acuity. [] HENT: Denies nasal congestion or sore throat. [] Respiratory: Denies cough or shortness of breath. [] Cardiovascular: Denies chest pain or edema. [] GI: Denies abdominal pain, nausea, vomiting, bloody stools or diarrhea. [] : Denies dysuria. [] Musculoskeletal: Right low back pain with sharp shooting pain down the right leg or denies joint pain. [] Integument: Denies rash. [] Neurologic: Denies headache, focal weakness or sensory changes. [] Endocrine: Denies polyuria or polydipsia. [] Lymphatic: Denies swollen glands. [] Psychiatric: Denies depression or anxiety. [] Heart Score: Risk Factors: Risk Factors: DM, Current or recent (<one month) smoker, HTN, HLP, family history of CAD, obesity. Risk Scores: Score 0 - 3: 2.5% MACE over next 6 weeks - Discharge Home Score 4 - 6: 20.3% MACE over next 6 weeks - Admit for Clinical Observation Score 7 - 10: 72.7% MACE over next 6 weeks - Early Invasive Strategies Current Medications: Current Medications Medications (Trade) Dose Ordered Sig/Cherelle Start Time Stop Time Status Last Admin Dose Admin Acetaminophen/ Hydrocodone Bitart (Lortab 5/325) 1 tab 1X ONCE 08/21/20 14:45 08/21/20 14:46 DC Allergies: Allergies: Allergies Coded Allergies Type Severity Reaction Last Updated Verified Fish Containing Products Allergy Severe Swelling 01/16/19 Yes shellfish derived Allergy Severe Swelling 01/16/19 Yes Physical Exam: PE: Constitutional: Well developed, well nourished, no acute distress, non-toxic appearance. [] HENT: Normocephalic, atraumatic, bilateral external ears normal, oropharynx moist, no oral exudates, nose normal. [] Eyes: PERRLA, EOMI, conjunctiva normal, no discharge. [] Neck: Normal range of motion, no tenderness, supple, no stridor. [] Cardiovascular:Heart rate regular rhythm, no murmur [] Lungs & Thorax: Bilateral breath sounds clear to auscultation [] Abdomen: Bowel sounds normal, soft, no tenderness, no masses, no pulsatile masses. [] Skin: Warm, dry, no erythema, no rash. [] Back: Right low back with mid focal bony lumbar tenderness, no CVA tenderness. [] Extremities: No tenderness, no cyanosis, no clubbing, ROM intact, no edema. [] Neurologic: Alert and oriented X 3, normal motor function, normal sensory function, no focal deficits noted. [] Psychologic: Affect normal, judgement normal, mood normal. [] EKG: EKG: [] Radiology/Procedures: Radiology/Procedures: [] Impression: [facility] [address] [place] [address] IMAGING REPORT Signed PATIENT: TARI SOLIS ACCOUNT: [id number] : 1980 LOCATION: ER AGE: 40 SEX: M EXAM STATUS: REG ER ORD. PHYSICIAN: FARZANA TRUJILLO APRN REASON: pain right side x 4 days, with sciatica PROCEDURE: CT LUMBAR SPINE WO CONTRAST Examination: CT lumbar spine without contrast HISTORY: Right-sided back pain with sciatica COMPARISON: None available Technique: Axial CT images of the lumbar spine was performed without contrast. Coronal and sagittal reformats are performed Exposure: One or more of the following individualized dose reduction techniques were utilized for this examination: 1. Automated exposure control 2. Adjustment of the mA and/or kV according to patient size 3. Use of iterative reconstruction technique FINDINGS: The lumbar vertebral body heights are maintained. Minimal posterior disc bulge identified at L2-L3, L3-L4 vertebral level. Mild disc bulge identified at L4-L5, L5-S1 vertebral level causing mild spinal canal stenosis and mild bilateral neural foraminal narrowing. Punctate 2 mm calculus right kidney. IMPRESSION: 1. Mild disc bulges identified at L4-L5, L5-S1 vertebral level causing mild spinal canal stenosis and mild bilateral neural foraminal narrowing. If pain persists consider follow-up MRI. Electronically signed by: Robles Hdz MD (08/21/2020 3:10 PM) [id number] DICTATED and SIGNED BY: ROBLES HDZ MD DATE: 08/21/20 1510 Course & Med Decision Making: Course & Med Decision Making Pertinent Labs and Imaging studies reviewed. (See chart for details) See HPI. Alert and oriented x4. Patient is using crutches to help him ambulate. No extremity edema. Full sensations. He is able to move all extremities except for he moves his legs and causes him pain. No saddle paresthesias. Skin pink warm and dry. IMPRESSION: 1. Mild disc bulges identified at L4-L5, L5-S1 vertebral level causing mild spinal canal stenosis and mild bilateral neural foraminal narrowing. If pain persists consider follow-up MRI. Patient will be given a Medrol Dosepak, pain medication and muscle relaxer. He is to follow-up primary care provider. [] Lexi Disclaimer: Lexi Disclaimer: This electronic medical record was generated, in whole or in part, using a voice recognition dictation system. Departure Departure Impression: Primary Impression: Low back pain Qualified Codes: M54.41 - Lumbago with sciatica, right side Disposition: DC HOME SELF CARE/HOMELESS Condition: STABLE Referrals: NO PCP (PCP) Patient Instructions: Back Pain, Adult, [id number], Sciatica with Rehab- [facility] Additional Instructions: Follow-up with a primary care provider soon as possible. Take medications as prescribed and with food. Do not drive or drink alcohol on these medications as they will make you sleepy. Scripts Hydrocodone/Apap 5-325 (NORCO 5-325 TABLET) 1 Each Tablet 1 TAB PO PRN Q6HRS PRN for PAIN, #10 TAB 0 Refills Prov: FARZANA TRUJILLO APRN 08/21/20 Orphenadrine Citrate (ORPHENADRINE CITRATE) 100 Mg Tablet.er 1 TAB PO BID, #14 TAB Prov: FARZANA TRUJILLO APRN 08/21/20 Methylprednisolone (MEDROL) 4 Mg Tab.ds.pk 1 PKG PO UD, #1 PKG Prov: FARZANA TRUJILLO APRN 08/21/20 FARZANA TRUJILLO APRN Aug 21, 2020 14:54
--- NOTE | 2020-08-21 15:13 | RAD ---
Examination: CT lumbar spine without contrast HISTORY: Right-sided back pain with sciatica COMPARISON: None available Technique: Axial CT images of the lumbar spine was performed without contrast. Coronal and sagittal reformats are performed Exposure: One or more of the following individualized dose reduction techniques were utilized for this examination: 1. Automated exposure control 2. Adjustment of the mA and/or kV according to patient size 3. Use of iterative reconstruction technique FINDINGS: The lumbar vertebral body heights are maintained. Minimal posterior disc bulge identified at L2-L3, L3-L4 vertebral level. Mild disc bulge identified at L4-L5, L5-S1 vertebral level causing mild spinal canal stenosis and mild bilateral neural foraminal narrowing. Punctate 2 mm calculus right kidney. IMPRESSION: 1. Mild disc bulges identified at L4-L5, L5-S1 vertebral level causing mild spinal canal stenosis and mild bilateral neural foraminal narrowing. If pain persists consider follow-up MRI. Electronically signed by: Robles Foster MD (08/21/2020 3:10 PM) [id number]
[2020-08-21 15:15] VITALS: BP 132/91
[2020-08-21] MEDS ORDERED: METH4TAB2 PO (15:20)
[2020-08-21] MEDS ORDERED: ORPH100T PO (15:21)
[2020-08-21] MEDS ORDERED: HYDR-3164 PO (15:21)
== END 2020-08-21 15:35 | disposition home or self-care (01) ==
LOC: ER 13:27
DX: M54.41 Lumbago with sciatica, right side (principal); G89.29 Other chronic pain; F12.90 Cannabis use, unspecified, uncomplicated; Z87.891 Personal history of nicotine dependence; Z91.013 Allergy to seafood
CPT/HCPCS: 72131; 99284